=== PATIENT | female | born 1960 | race American Indian/Alaskan Native ===

== ENCOUNTER 2017-01-08 10:00 | Emergency (ER) | payer BC ==
--- NOTE | 2017-01-08 10:57 | Emergency Department Report ---
ED ENT HPI - General Chief complaint: Dental/Oral Stated complaint: SWOLLEN FACE Time Seen by Provider: 01/08/17 10:49 Source: patient Mode of arrival: Ambulatory Limitations: No Limitations - History of Present Illness Initial comments: Patient comes into the ER today with complaints of left facial swelling and pain that she believes is from a bad tooth. Patient states symptoms started approximately 2 days ago with mild left upper gum and tooth swelling. Each day , the swelling progressed into her left cheek. Patient states that she has a known bad tooth in that area and saw a dentist approximately one year ago but that they would not pull her tooth because of her elevated blood pressure. The patient has recently started seeing a new primary care doctor whom has her on multiple medicines trying to control her blood pressure. Patient denies any chest pain, body aches, shortness of breath. MD complaint: tooth pain - Related Data Home Medications Medication Instructions Recorded Confirmed Last Taken Glimepiride [Amaryl] 2 mg PO BID 06/29/15 06/29/15 06/29/15 09:00 metFORMIN [Glucophage] 500 mg PO BID 06/29/15 06/29/15 06/29/15 09:00 Previous Rx's Medication Instructions Recorded Last Taken Type Carvedilol [Coreg] 12.5 mg PO BID #60 tablet 07/01/15 Unknown Rx Insulin Aspart Prot/Aspart(Nf) 16 units SUB-Q BIDDIAB #1000 units 07/01/15 Unknown Rx [NovoLOG Mix 70/30 VIAL] Levothyroxine [Synthroid] 100 mcg PO QAM #30 tablet 07/01/15 Unknown Rx Losartan [Cozaar] 100 mg PO QDAY #30 tablet 07/01/15 Unknown Rx amLODIPine [Norvasc] 10 mg PO DAILY #30 tablet 07/01/15 Unknown Rx Clindamycin [Clindamycin CAP] 300 mg PO Q6H #40 capsule 01/08/17 Unknown Rx Potassium Chloride [K-Dur] 20 meq PO TID #60 tab 01/08/17 Unknown Rx traMADol [Ultram 50 MG tab] 50 mg PO Q4HR PRN #20 tablet 01/08/17 Unknown Rx Allergies Allergy/AdvReac Type Severity Reaction Status Date / Time Sulfa (Sulfonamide AdvReac RASH/REDNES Verified 01/08/17 10:06 Antibiotics) S ED Dental HPI - General Chief complaint: Dental/Oral Stated complaint: SWOLLEN FACE Time Seen by Provider: 01/08/17 10:49 Source: patient Mode of arrival: Ambulatory Limitations: No Limitations - Related Data Home Medications Medication Instructions Recorded Confirmed Last Taken Glimepiride [Amaryl] 2 mg PO BID 06/29/15 06/29/15 06/29/15 09:00 metFORMIN [Glucophage] 500 mg PO BID 06/29/15 06/29/15 06/29/15 09:00 Previous Rx's Medication Instructions Recorded Last Taken Type Carvedilol [Coreg] 12.5 mg PO BID #60 tablet 07/01/15 Unknown Rx Insulin Aspart Prot/Aspart(Nf) 16 units SUB-Q BIDDIAB #1000 units 07/01/15 Unknown Rx [NovoLOG Mix 70/30 VIAL] Levothyroxine [Synthroid] 100 mcg PO QAM #30 tablet 07/01/15 Unknown Rx Losartan [Cozaar] 100 mg PO QDAY #30 tablet 07/01/15 Unknown Rx amLODIPine [Norvasc] 10 mg PO DAILY #30 tablet 07/01/15 Unknown Rx Clindamycin [Clindamycin CAP] 300 mg PO Q6H #40 capsule 01/08/17 Unknown Rx Potassium Chloride [K-Dur] 20 meq PO TID #60 tab 01/08/17 Unknown Rx traMADol [Ultram 50 MG tab] 50 mg PO Q4HR PRN #20 tablet 01/08/17 Unknown Rx Allergies Allergy/AdvReac Type Severity Reaction Status Date / Time Sulfa (Sulfonamide AdvReac RASH/REDNES Verified 01/08/17 10:06 Antibiotics) S ED Review of Systems ROS: Stated complaint: SWOLLEN FACE Other details as noted in HPI Constitutional: denies: chills, fever Eyes: denies: eye pain, eye discharge, vision change ENT: dental pain, other (left cheek and facial swelling). denies: ear pain, throat pain Respiratory: denies: cough, shortness of breath, wheezing Cardiovascular: denies: chest pain, palpitations, edema Endocrine: no symptoms reported Gastrointestinal: denies: abdominal pain, nausea, diarrhea Genitourinary: denies: urgency, dysuria, discharge Musculoskeletal: denies: back pain, joint swelling, arthralgia Skin: denies: rash, lesions Neurological: denies: headache, weakness, paresthesias Psychiatric: denies: anxiety, depression Hematological/Lymphatic: denies: easy bleeding, easy bruising ED Past Medical Hx - Past Medical History Hx Hypertension: Yes Hx Congestive Heart Failure: No Hx Diabetes: Yes Hx Asthma: No Hx COPD: No Additional medical history: THYROID - Surgical History Additional Surgical History: . TUBAL LIGATION. KELOID REMOVED LEFT EAR - Social History Smoking Status: Current Every Day Smoker Substance Use Type: None - Medications Home Medications: Home Medications Medication Instructions Recorded Confirmed Last Taken Type Glimepiride [Amaryl] 2 mg PO BID 06/29/15 06/29/15 06/29/15 09:00 History metFORMIN [Glucophage] 500 mg PO BID 06/29/15 06/29/15 06/29/15 09:00 History Carvedilol [Coreg] 12.5 mg PO BID #60 tablet 07/01/15 Unknown Rx Insulin Aspart Prot/Aspart(Nf) 16 units SUB-Q BIDDIAB #1000 units 07/01/15 Unknown Rx [NovoLOG Mix 70/30 VIAL] Levothyroxine [Synthroid] 100 mcg PO QAM #30 tablet 07/01/15 Unknown Rx Losartan [Cozaar] 100 mg PO QDAY #30 tablet 07/01/15 Unknown Rx amLODIPine [Norvasc] 10 mg PO DAILY #30 tablet 07/01/15 Unknown Rx Clindamycin [Clindamycin CAP] 300 mg PO Q6H #40 capsule 01/08/17 Unknown Rx Potassium Chloride [K-Dur] 20 meq PO TID #60 tab 01/08/17 Unknown Rx traMADol [Ultram 50 MG tab] 50 mg PO Q4HR PRN #20 tablet 01/08/17 Unknown Rx ED Physical Exam - General Limitations: No Limitations General appearance: alert, in no apparent distress, other (upon entering exam room, patient eating watermelon in the room.) - Head Head exam: Present: atraumatic, normocephalic, other (left facial cheek and jaw swelling, redness, tenderness) - Eye Eye exam: Present: normal appearance, PERRL, EOMI. Absent: conjunctival injection - ENT ENT exam: Present: mucous membranes moist, TM's normal bilaterally, normal external ear exam, other (left greater than right nasal mucosa redness and turbinate swelling. Left upper molar dental decay with surrounding gum redness and swelling. No visible abscess to gum area.) - Neck Neck exam: Present: normal inspection, full ROM. Absent: lymphadenopathy - Respiratory Respiratory exam: Present: normal lung sounds bilaterally. Absent: respiratory distress, chest wall tenderness, decreased breath sounds - Cardiovascular Cardiovascular Exam: Present: regular rate, normal rhythm, normal heart sounds. Absent: systolic murmur, diastolic murmur, rubs, gallop - GI/Abdominal GI/Abdominal exam: Present: soft, normal bowel sounds - Extremities Exam Extremities exam: Present: normal inspection - Back Exam Back exam: Present: normal inspection - Neurological Exam Neurological exam: Present: alert, oriented X3, CN II-XII intact - Psychiatric Psychiatric exam: Present: normal affect, normal mood - Skin Skin exam: Present: warm, dry, intact, normal color. Absent: rash ED Course Vital Signs 01/08/17 01/08/17 10:06 12:47 Temperature 99 F 101.0 F H Pulse Rate 92 H 77 Respiratory 18 16 Rate Blood Pressure 168/119 Blood Pressure 168/100 [Left] O2 Sat by Pulse 99 97 Oximetry ED Medical Decision Making - Lab Data Result diagrams: 01/08/17 11:06 01/08/17 11:06 Lab Results 01/08/17 01/08/17 01/08/17 Range/Units 11:06 11:06 11:53 WBC 10.2 (4.5-11.0) K/mm3 RBC 3.62 L (3.65-5.03) M/mm3 Hgb 11.7 (10.1-14.3) gm/dl Hct 33.6 (30.3-42.9) % MCV 93 (79-97) fl MCH 32 (28-32) pg MCHC 35 H (30-34) % RDW 13.3 (13.2-15.2) % Plt Count 267 (140-440) K/mm3 Lymph % (Auto) 13.7 (13.4-35.0) % Charles % (Auto) 11.4 H (0.0-7.3) % Eos % (Auto) 0.7 (0.0-4.3) % Baso % (Auto) 0.5 (0.0-1.8) % Lymph # 1.4 (1.2-5.4) K/mm3 Charles # 1.2 H (0.0-0.8) K/mm3 Eos # 0.1 (0.0-0.4) K/mm3 Baso # 0.1 (0.0-0.1) K/mm3 Seg Neutrophils % 73.7 H (40.0-70.0) % Seg Neutrophils # 7.5 (1.8-7.7) K/mm3 Sodium 142 (137-145) mmol/L Potassium 2.2 L* (3.6-5.0) mmol/L Chloride 94.3 L (98-107) mmol/L Carbon Dioxide 33 H (22-30) mmol/L Anion Gap 17 mmol/L BUN 10 (7-17) mg/dL Creatinine 0.8 (0.7-1.2) mg/dL Estimated GFR > 60 ml/min BUN/Creatinine Ratio 12.50 % Glucose 181 H (65-100) mg/dL Calcium 9.2 (8.4-10.2) mg/dL Magnesium 1.80 (1.7-2.3) mg/dL - EKG Data -: EKG Interpreted by Me EKG shows normal: sinus rhythm Rate: normal (73) - EKG Data Interpretation: no acute changes - Medical Decision Making Patient is nontoxic and hemodynamically stable. Patient does have obvious facial swelling that I believe is originating from dental infection that has migrated up into the maxillary sinuses. Patient was given IV fluids as well as IV clindamycin here in the ER to expedite treatment. After obtaining lab results, patient found to have low potassium. Apparently patient takes potassium at home daily but states she has not taken any medicine today. Sensation states that she usually battles with low potassium and that her doctor is aware of this. Subsequent magnesium ordered and obtained as well as EKG to evaluate for any cardiac changes. Patient denies any chest pain, arrhythmias, palpitations. Patient's magnesium level within normal limits. EKG is unremarkable for acute changes. Patient was given 40 mEq of potassium orally here in the ER. I have encouraged patient to be more compliant with her potassium supplement and that she needs to be following up with her doctor next week for repeat potassium level as well as repeat blood pressure check. Patient is in agreement with treatment plan patient is stable for discharge. Critical care attestation.: If time is entered above; I have spent that time in minutes in the direct care of this critically ill patient, excluding procedure time. ED Disposition Clinical Impression: Pain, dental, Dental infection, Sinusitis, Hypokalemia Disposition: DC-01 TO HOME OR SELFCARE Is pt being admited?: No Does the pt Need Aspirin: No Condition: Good Instructions: Dental Abscess (ED), Toothache (ED), Hypokalemia (ED), Fever in Adults (ED) Prescriptions: Clindamycin [Clindamycin CAP] 300 mg PO Q6H #40 capsule Potassium Chloride [K-Dur] 20 meq PO TID #60 tab traMADol [Ultram 50 MG tab] 50 mg PO Q4HR PRN #20 tablet PRN Reason: Pain Referrals: dentist, your [Other] - 3-5 Days [facility] [Outside] - 3-5 Days JOSH DEL REAL MD [Primary Care Provider] - 3-5 Days (To recheck potassium levels as well as monitor blood pressure) Time of Disposition: 12:52
[2017-01-08] MEDS ORDERED: NACL 0.9% 1000 ML 1,000 ML IV ONE (10:58)
[2017-01-08] MEDS ORDERED: CLEOCIN 900 MG/50 mL 900 MG/50 ML BAG IV ONE (10:58)
[2017-01-08 11:20] LABS: Basophils % (Auto) 0.5 % (0.0-1.8); Eosinophils % (Auto) 0.7 % (0.0-4.3); Hematocrit 33.6 % (30.3-42.9); Hemoglobin 11.7 gm/dl (10.1-14.3); Mean Corpuscular HGB Conc 35 % (30-34); Mean Corpuscular Hemoglobin 32 pg (28-32); Mean Corpuscular Volume 93 fl (79-97); Platelet Count 267 K/mm3 (140-440); Red Blood Count 3.62 M/mm3 (3.65-5.03); Red Cell Distribution Width 13.3 % (13.2-15.2); White Blood Count 10.2 K/mm3 (4.5-11.0)
[2017-01-08 11:34] LABS: Anion Gap 17 mmol/L; Blood Urea Nitrogen 10 mg/dL (7-17); Calcium 9.2 mg/dL (8.4-10.2); Carbon Dioxide 33 mmol/L (22-30); Chloride 94.3 mmol/L (98-107); Glucose 181 mg/dL (65-100); Sodium 142 mmol/L (137-145)
[2017-01-08 11:41] LABS: Potassium 2.2 mmol/L (3.6-5.0)
[2017-01-08] MEDS ORDERED: K-DUR PO ONE (11:49)
[2017-01-08] MEDS ORDERED: TYLENOL PO ONE (12:47)
[2017-01-08 12:48] VITALS: BP 168/100
== END 2017-01-08 13:07 | disposition home or self-care (01) ==
LOC: ED 10:00
DX: K04.7 Periapical abscess without sinus (principal); J32.9 Chronic sinusitis, unspecified; E87.6 Hypokalemia; I10 Essential (primary) hypertension; E11.9 Type 2 diabetes mellitus without complications; F17.200 Nicotine dependence, unspecified, uncomplicated
CPT/HCPCS: 36415; 80048; 83735; 85025; 93005; 93010; 96365; 99283; J7030

== ENCOUNTER 2017-09-19 06:18 | Outpatient (CLI) | payer BC ==
[2017-09-19 06:49] LABS: Blood Urea Nitrogen 16 mg/dL (7-17)
--- NOTE | 2017-09-19 10:33 | Cat Scan Report ---
CT ABDOMEN WITH AND WITHOUT CONTRAST HISTORY: Adrenal hyperplasia. TECHNIQUE: Helical CT following IV and oral contrast. Please note this study was ordered as a CT abdomen with and without contrast. The production technologist erroneously performed a CT with IV contrast. COMPARISON: CT abdomen pelvis with contrast dated 06/30/15. FINDINGS: Both adrenal glands are visualized. Bilateral adrenal nodules are suspected. A 1.6 cm nodule is identified in the body of the left adrenal gland. A 0.8 cm nodule is identified in the body of the right adrenal gland. These nodules appear unchanged in size, density and enhancement pattern since 06/30/15 exam. Please note the right adrenal nodule was not mentioned on the previous exam but in retrospect is identified. These most likely represent adrenal adenomas although this exam is slightly limited without the CT without contrast portion of this exam. No neoplastic or metastatic process is suspected. They are unchanged since 06/30/15. Heart size appears mildly enlarged which is dated new finding. No pericardial effusion. The visualized lung bases are adequately aerated. There are numerous cholesterol gallstones in the gallbladder. No biliary dilatation or inflammation. The CBD is normal caliber. Normal liver, pancreas, spleen, kidneys, and visualized bowel loops. Normal appendix. The aorta is mildly ectatic and contains calcifications but no stenosis or aneurysm. The bony structures are intact. IMPRESSION: No change in the bilateral adrenal nodules since 06/30/15 which are consistent with adrenal adenomas. Please see above. Mild cardiomegaly which appears to be new. Cholelithiasis.
== END 2017-09-19 06:19 | disposition home or self-care (01) ==
LOC: CT 06:18
PROVIDERS: ATTEND Internal Medicine
DX: E26.09 Other primary hyperaldosteronism (principal)
CPT/HCPCS: 36415; 74170; 82565; 84520; Q9967